=== PATIENT | female | born 1960 | race Caucasian/White ===

== ENCOUNTER 2022-06-11 09:57 | Outpatient (CLI) | payer OTHER ==
[2022-06-11 12:22] LABS: Hemoglobin 13.1 g/dL (12.0-15.5); Mean Corpuscular HGB CONC 34.7 g/dL (32.0-36.0); Mean Corpuscular Hemoglobin 31.6 pg (27.0-33.0); Mean Corpuscular Volume 91.1 fl (81.6-98.3); Mean Platelet Volume 9.3 fl (7.4-10.4); Platelet Count 270 10x3/uL (150-450); RBC Distribution Width 12.2 % (11.5-14.5); Red Blood Cell (RBC) Count 4.14 10x6/uL (3.90-5.03); White Blood Cell (WBC) Count 4.9 10x3/uL (3.5-10.5)
[2022-06-11 12:36] LABS: Anion Gap 14 mmol/L (10-20); BUN (Urea Nitrogen) 11 mg/dL (9.8-20.1); Calc. Creatinine Clearance 0 mL/min (70-130); Calcium 9.8 mg/dL (7.8-10.44); Carbon Dioxide 30 mmol/L (23-31); Chloride 101 mmol/L (98-107); Estimated GFR 63; Glucose 87 mg/dL (80-115); Potassium 4.1 mmol/L (3.5-5.1); Sodium 141 mmol/L (136-145)
== END 2022-06-11 09:58 | disposition home or self-care (01) ==
LOC: CSHLAB 09:57
PROVIDERS: ATTEND Surgery
DX: Z01.812 Encounter for preprocedural laboratory examination (principal); C50.411 Malignant neoplasm of upper-outer quadrant of right female breast; Z17.0 Estrogen receptor positive status [ER+]
CPT/HCPCS: 80048; 85027

== ENCOUNTER 2022-06-14 07:07 | Day surgery (SDC) | payer OTHER, SELFPAY ==
[2022-06-13 14:30] VITALS: BMI 22.3
[2022-06-14] MEDS ORDERED: Ondansetron PF 4 MG/2 ML Vial ONE (10:15)
[2022-06-14] MEDS ORDERED: Fentanyl 100 MCG/2 ML VIAL ONE ×2 (10:15→11:42)
[2022-06-14] MEDS ORDERED: Dexamethasone 4 mg/ml Vial ONE (10:15)
[2022-06-14] MEDS ORDERED: Ketorolac Tromethamine 30 MG/ML VIAL ONE (10:15)
[2022-06-14] MEDS ORDERED: CEFAZOLIN 2 GM VIAL ONE (10:20)
[2022-06-14] MEDS ORDERED: Isosulfan Blue 50 MG/5 ML VIAL ONE (10:20)
[2022-06-14] MEDS ORDERED: Bupivacaine PF 0.5% 30 ML VIAL ONE (10:20)
[2022-06-14] MEDS ORDERED: EPINEPHrine 1 MG/ML AMP ONE (10:20)
[2022-06-14] MEDS ORDERED: Esmolol 100 MG/10 ML VIAL ONE (10:25)
[2022-06-14] MEDS ORDERED: Acetaminophen 325 MG TAB PO PRN (12:09)
== END 2022-06-14 13:25 | disposition home or self-care (01) ==
LOC: CSHNM 07:07
PROVIDERS: ATTEND Surgery
PROC: 0HBT0ZZ Excision of Right Breast, Open Approach (ICD-10-PCS; principal; 2022-06-14)
PROC: 07B50ZX Excision of Right Axillary Lymphatic, Open Approach, Diagnostic (ICD-10-PCS; principal; 2022-06-14)
DX: C50.411 Malignant neoplasm of upper-outer quadrant of right female breast (principal); I10 Essential (primary) hypertension; E03.9 Hypothyroidism, unspecified; D51.0 Vitamin B12 deficiency anemia due to intrinsic factor deficiency; Z79.899 Other long term (current) drug therapy; Z90.710 Acquired absence of both cervix and uterus
CPT/HCPCS: 19281; 76098; 78195; 88307; 88342; A9541; C1713; J0171; J0690; J1100; J1885; J2405; J3010; Q9968; S0020

== ENCOUNTER 2025-05-11 12:38 | Outpatient (CLI) | payer MEDICARE | END 2025-05-11 12:39 | disposition home or self-care (01) | LOC: CSHMAMMO 12:38 | PROVIDERS: ATTEND Surgery | DX: Z08 Encounter for follow-up examination after completed treatment for malignant neoplasm (principal); Z85.3 Personal history of malignant neoplasm of breast | CPT/HCPCS: 77066; G0279 ==